=== PATIENT | male | born 1960 | race Caucasian/White ===

== ENCOUNTER 2017-07-09 12:41 | Inpatient (IN) | payer BC ==
[2017-07-09 13:03] VITALS: BMI 26.6
--- NOTE | 2017-07-09 19:11 | HP ---
CIWA Score - CIWA Score Nausea/Vomitin-Mild Nausea/No Vomiting Muscle Tremors: 4-Moderate,w/Arms Extend Anxiety: 3 Agitation: 4-Moderately Restless Paroxysmal Sweats: No Perspiration Orientation: 1-Uncertain about Date Tacttile Disturbances: 0-None Auditory Disturbances: 0-None Visual Disturbances: 0-None Headache: 0-None Present CIWA-Ar Total Score: 13 Admission ROS S - HPI Chief Complaint: withdrawal sx Allergies/Adverse Reactions: Allergies Allergy/AdvReac Type Severity Reaction Status Date / Time No Known Allergies Allergy Verified 07/09/17 17:10 History of Present Illness: 57 years old male with long history of alcohol dependence, hospitalized x 5 days (07/01-07/06), treated with cardiac arrhythemia, discharged x 2-3 days ago ( 07/06-07/09) began to drink heavily, came to [facility] for alcohol detox Exam Limitations: No Limitations - Ebola screening Have you traveled outside of the country in the last 21 days: No Have you had contact with anyone from an Ebola affected area: No Have you been sick,other than usual withdrawal symptoms: No Do you have a fever: No - Review of Systems Constitutional: Chills, Weight Stable EENT: reports: No Symptoms Reported Respiratory: reports: No Symptoms reported Cardiac: reports: No Symptoms Reported GI: reports: Nausea, Poor Fluid Intake, Indigestion, Abdominal cramping : reports: Other (volume deficit) Musculoskeletal: reports: No Symptoms Reported Integumentary: reports: Bruising (arms), Change in Color (hospitalized x 5-6 days) Neuro: reports: Tremors Endocrine: reports: No Symptoms Reported Hematology: reports: No Symptoms Reported Psychiatric: reports: Judgement Intact, Orientated x3, Depressed Other Systems: Reviewed and Negative Patient History - Patient Medical History Hx Anemia: No Hx Asthma: No Hx Chronic Obstructive Pulmonary Disease (COPD): No Hx Cancer: No Hx Cardiac Disorders: No Hx Congestive Heart Failure: No Hx Hypertension: Yes Hx Hypercholesterolemia: No Hx Pacemaker: No HX Cerebrovascular Accident: No Hx Seizures: No Hx Dementia: No Hx Diabetes: No Hx Gastrointestinal Disorders: Yes Hx Liver Disease: No Hx Genitourinary Disorders: No Hx Sexually Transmitted Disorders: No Hx Renal Disease (ESRD): No Hx Thyroid Disease: No Hx Human Immunodeficiency Virus (HIV): No Hx Hepatitis C: No Hx Depression: Yes Hx Suicide Attempt: No Hx Bipolar Disorder: No Hx Schizophrenia: No - Patient Surgical History Past Surgical History: Yes Hx Neurologic Surgery: No Hx Cataract Extraction: No Hx Cardiac Surgery: No Hx Lung Surgery: No Hx Breast Surgery: No Hx Breast Biopsy: No Hx Abdominal Surgery: No Hx Appendectomy: Yes (age 10) Hx Cholecystectomy: No Hx Genitourinary Surgery: No Hx Orthopedic Surgery: No Anesthesia Reaction: No - PPD History Previous Implant?: Yes Documented Results: Negative w/o proof Implanted On Prior R Admission?: No PPD to be Administered?: Yes - Smoking Cessation Smoking history: Smoker current status UNK Have you smoked in the past 12 months: No Hx Chewing Tobacco Use: No Initiated information on smoking cessation: No - Substance & Tx. History Hx Alcohol Use: Yes Hx Substance Use: No Substance Use Type: Alcohol Hx Substance Use Treatment: No - Substances Abused Alcohol Route: Oral Frequency: Daily Amount used: LIQUOR- 2 PINTS Age of first use: 17 Date of Last Use: 07/09/17 Family Disease History - Family Disease History Family Disease History: Diabetes: Father (), CA: Mother (), Other: Father, Mother, Brother ( hiv) Admission Physical Exam BHS - Vital Signs Vital Signs: Vital Signs - 24 hr 07/09/17 13:00 Temperature 98.3 F Pulse Rate 110 H Respiratory 18 Rate Blood Pressure 140/93 - Physical General Appearance: Yes: Nourished, Appropriately Dressed, Mild Distress, Alcohol on Breath, Tremorous, Irritable, Sweating, Anxious HEENTM: Yes: Hearing grossly Normal, Normal ENT Inspection, Normocephalic, Normal Voice Respiratory: Yes: Chest Non-Tender, Lungs Clear, Normal Breath Sounds, No Respiratory Distress, No Accessory Muscle Use Neck: Yes: Supple, Trachea in good position Breast: Yes: Breasts Symetrical Cardiology: Yes: Regular Rhythm, S1, S2, Tachycardia Abdominal: Yes: Normal Bowel Sounds, Non Tender, Soft Genitourinary: Yes: Within Normal Limits Back: Yes: Normal Inspection Musculoskeletal: Yes: full range of Motion, Gait Steady Extremities: Yes: Normal Inspection, Normal Range of Motion, Non-Tender, Tremors Neurological: Yes: Fully Oriented, Alert, Motor Strength 5/5, Normal Response, Depressed Affect Integumentary: Yes: Warm, Other (bruises both arms) Lymphatic: Yes: Within Normal Limits - Diagnostic (1) Alcohol dependence with uncomplicated withdrawal Current Visit: Yes Status: Acute (2) GERD (gastroesophageal reflux disease) Current Visit: Yes Status: Chronic Qualifiers: Esophagitis presence: without esophagitis Qualified Code(s): K21.9 - Gastro-esophageal reflux disease without esophagitis; K21.9 - Gastro- esophageal reflux disease without esophagitis; K21.9 - Gastro-esophageal reflux disease without esophagitis (3) Irregular heart rate Current Visit: Yes Status: Chronic (4) Hypertension Current Visit: Yes Status: Chronic Qualifiers: Hypertension type: essential hypertension Qualified Code(s): I10 - Essential (primary) hypertension; I10 - Essential (primary) hypertension; I10 - Essential (primary) hypertension (5) Depression (emotion) Current Visit: Yes Status: Suspected Qualifiers: Depression Type: dysthymia Qualified Code(s): F34.1 - Dysthymic disorder; F34.1 - Dysthymic disorder; F34.1 - Dysthymic disorder Cleared for Admission [facility] - Detox or Rehab [facility] Level of Care: Medically Managed Detox Regimen/Protocol: Librium [facility] Breath Alcohol Content Breath Alcohol Content: 0.230 Urine Drug Screen - Results Drug Screen Negative: No Urine Drug Screen Results: BZO-Benzodiazepines
[2017-07-09] MEDS ORDERED: MAGNESIUM HYDROX 2400MG/30ML ORAL SUSPENSION 30 ML CUP PO PRN (19:19)
[2017-07-09] MEDS ORDERED: P-EPHED 60MG/TRIPROLIDI 2.5MG TABLET PO PRN (19:19)
[2017-07-09] MEDS ORDERED: chlordiazePOXIDE HCL 25 MG CAPSULE PO PRN (19:19)
[2017-07-09] MEDS ORDERED: ACETAMINOPHEN 325 MG TABLET (FP) PO PRN (19:19)
[2017-07-09] MEDS ORDERED: MAG HYDROX/AL HYDROX/SIMETH 30 ML UNIT-DOSE CUP PO PRN (19:19)
[2017-07-09] MEDS ORDERED: guaiFENesin/D-METHORPHAN HB 10 ML UNIT-DOSE CUPS PO PRN (19:19)
[2017-07-09] MEDS ORDERED: MAGNESIUM CITRATE 300 ML BOTTLE PO PRN (19:19)
[2017-07-09] MEDS ORDERED: LOPERAMIDE HCL 2 MG CAPSULE PO PRN (19:19)
[2017-07-09] MEDS ORDERED: MENTHOL/PHENOL 1 EACH UD MM PRN (19:19)
[2017-07-09] MEDS: METOPROLOL SUCCINATE 50 MG TAB.SR.24H (FP) PO SCH (21:19)
[2017-07-09] MEDS: THIAMINE HCL 100 MG TABLET (FP) PO SCH (22:12)
[2017-07-09] MEDS: chlordiazePOXIDE HCL 25 MG CAPSULE PO SCH (22:12)
[2017-07-10] MEDS: chlordiazePOXIDE HCL 25 MG CAPSULE PO SCH ×4 (05:15→22:18)
[2017-07-10 10:14] LABS: MCH 34.8 pg (25.7-33.7); MEAN CELL VOLUME 99.6 fl (80-96); MEAN PLT VOLUME 7.9 fl (7.5-11.1); RDW 13.3 % (11.9-15.9); WHITE BLOOD COUNT 3.7 K/mm3 (4.0-10.0)
[2017-07-10] MEDS: PRENATAL VITAMINS W/ FOLIC ACID TABLET (FP) PO SCH (10:17)
[2017-07-10] MEDS: PANTOPRAZOLE 40 MG TABLET (FP) PO SCH (10:17)
[2017-07-10 10:24] LABS: PLATELET COUNT 31 K/MM3 (134-434)
--- NOTE | 2017-07-10 10:25 | EKG ---
Test Reason : Blood Pressure : / mmHG Vent. Rate : 081 BPM Atrial Rate : 081 BPM P-R Int : 150 ms QRS Dur : 086 ms QT Int : 400 ms P-R-T Axes : 032 -37 004 degrees QTc Int : 464 ms NORMAL SINUS RHYTHM LEFT AXIS DEVIATION ABNORMAL ECG WHEN COMPARED WITH ECG OF 09-JUL-2017 21:57, CRITERIA FOR SEPTAL INFARCT ARE NO LONGER PRESENT Confirmed by WALESKA KENNEY, CONSUELO ([id number]) on 07/10/2017 10:25:21 AM Referred By: Confirmed By:CONSUELO GALEANO MD
[2017-07-10 10:26] LABS: ALBUMIN 3.5 g/dl (3.4-5.0); ALK PHOS 150 U/L (45-117); ANION GAP 11 (8-16); BILIRUBIN,TOTAL 2.3 mg/dL (0.2-1.0); CALCIUM 8.4 mg/dL (8.5-10.1); CO2 29 mmol/L (21-32); CREATININE 0.8 mg/dL (0.7-1.3); GLUCOSE,RANDOM 112 mg/dL (74-106); SGOT/AST 128 U/L (15-37); SGPT/ALT 52 U/L (12-78); TOT PROT 7.9 g/dl (6.4-8.2)
--- NOTE | 2017-07-10 10:37 | CONSULT ---
[facility] Psychiatric Consult - Data Date of interview: 07/10/17 Admission source: [facility] Identifying data: First admission to [facility] for this 57 y/o male seeking detox treatment on for alcohol dependence.Patient is single,a father of one,domiciled and employed. Substance Abuse History: Discussed in this session.Patient admits to a history of heavy drinking as detailed in this [facility] report. Smoking history: Smoker current status UNK. Have you smoked in the past 12 months: No. Hx Chewing Tobacco Use: No. Initiated information on smoking cessation: No. - Substance & Tx. History. Hx Alcohol Use: Yes. Hx Substance Use: No. Substance Use Type : Alcohol. Hx Substance Use Treatment: No. - Substances Abused. Alcohol. Route: Oral. Frequency: Daily. Amount used: LIQUOR- 2 PINTS. Age of first use : 17. Date of Last Use: 07/09/17 Medical History: GERD and hypertension. Psychiatric History: No reported history of psychiatric hospitalizations.Mr Monte is known to the [facility] program ([facility]). Physical/Sexual Abuse/Trauma History: Patient denies history of abuse. Additional Comment: Urine Drug Screen Results: BZO-Benzodiazepines.Noted. Mental Status Exam - Mental Status Exam Alert and Oriented to: Time, Place, Person Cognitive Function: Good Patient Appearance: Well Groomed Mood: Hopeful, Euthymic Affect: Normal Range Patient Behavior: Fatigued, Appropriate, Cooperative Speech Pattern: Clear Voice Loudness: Normal Thought Process: Intact, Goal Oriented Thought Disorder: Not Present Hallucinations: Denies Suicidal Ideation: Denies Homicidal Ideation: Denies Insight/Judgement: Poor Sleep: Poorly, Difficulty falling asleep Appetite: Good Muscle strength/Tone: Normal Gait/Station: Normal Psychiatric Findings - Problem List ([place] 1, 2,3) (1) Alcohol dependence with uncomplicated withdrawal Current Visit: Yes Status: Acute (2) Insomnia Current Visit: Yes Status: Acute Qualifiers: Insomnia type: unspecified Qualified Code(s): G47.00 - Insomnia, unspecified - Initial Treatment Plan Initial Treatment Plan: Psychoeducation.Detoxification.Ambien 10 mg po hs prn.Patient is made aware of potential for parasomnias.Sleep hygiene discussed.Patient agrees with this careplan.Observation.
--- NOTE | 2017-07-10 11:22 | PN ---
[facility] CIWA - CIWA Score Nausea/Vomitin-No Nausea/No Vomiting Muscle Tremors: 4-Moderate,w/Arms Extend Anxiety: 4-Mod. Anxious/Guarded Agitation: 4-Moderately Restless Paroxysmal Sweats: 1-Minimal Palms Moist Orientation: 0-Oriented Tacttile Disturbances: 3-Moderate Itch/Numb/Burn Auditory Disturbances: 0-None Visual Disturbances: 0-None Headache: 0-None Present CIWA-Ar Total Score: 16 S Progress Note (SOAP) Subjective: ANXIETY,SWEATS,TREMORS,IRRITABILITY. PT C/O FAOO LAST Saturday07/08/17. REPORTS LARGE ECHYMOTIC AREA ON RIGHT SIDE OF ABDOMEN/CHEST AND RIGHT SHOULDER. Objective: 07/10/17 11:22 Vital Signs Temperature 99.7 F H 07/10/17 09:21 Pulse Rate 108 H 07/10/17 09:21 Respiratory Rate 20 07/10/17 09:21 Blood Pressure 157/96 07/10/17 09:21 O2 Sat by Pulse Oximetry (%) Laboratory Last Values WBC 3.7 K/mm3 (4.0-10.0) L 07/10/17 07:00 RBC 3.39 M/mm3 (4.00-5.60) L 07/10/17 07:00 Hgb 11.8 GM/dL (11.7-16.9) 07/10/17 07:00 Hct 33.8 % (35.4-49) L 07/10/17 07:00 MCV 99.6 fl (80-96) H 07/10/17 07:00 MCH 34.8 pg (25.7-33.7) H 07/10/17 07:00 MCHC 35.0 g/dl (32.0-35.9) 07/10/17 07:00 RDW 13.3 % (11.9-15.9) 07/10/17 07:00 Plt Count 31 K/MM3 (134-434) L* 07/10/17 07:00 MPV 7.9 fl (7.5-11.1) 07/10/17 07:00 Sodium 136 mmol/L (136-145) 07/10/17 07:00 Potassium 3.4 mmol/L (3.5-5.1) L 07/10/17 07:00 Chloride 96 mmol/L (98-107) L 07/10/17 07:00 Carbon Dioxide 29 mmol/L (21-32) 07/10/17 07:00 Anion Gap 11 (8-16) 07/10/17 07:00 BUN 4 mg/dL (7-18) L 07/10/17 07:00 Creatinine 0.8 mg/dL (0.7-1.3) 07/10/17 07:00 Creat Clearance w eGFR > 60 (>60) 07/10/17 07:00 Random Glucose 112 mg/dL (74-106) H 07/10/17 07:00 Calcium 8.4 mg/dL (8.5-10.1) L 07/10/17 07:00 Total Bilirubin 2.3 mg/dL (0.2-1.0) H 07/10/17 07:00 AST 128 U/L (15-37) H 07/10/17 07:00 ALT 52 U/L (12-78) 07/10/17 07:00 Alkaline Phosphatase 150 U/L (45-117) H 07/10/17 07:00 Total Protein 7.9 g/dl (6.4-8.2) 07/10/17 07:00 Albumin 3.5 g/dl (3.4-5.0) 07/10/17 07:00 K+ = 3.4 Assessment: 07/10/17 11:22 WITHDRAWAL SX BORDERLINE HYPOKALEMIA Plan: CONTINUE DETOX KDUR 20 MEQ PO BID REPEAT CMP AND CBC; INR ON 07/11/17
[2017-07-10] MEDS ORDERED: POTASSIUM CHLORIDE TABS 20 MEQ TABLET.ER (FP) PO ONE (12:00)
[2017-07-10] MEDS: METOPROLOL SUCCINATE 50 MG TAB.SR.24H (FP) PO SCH (12:10)
[2017-07-10 13:44] LABS: HIV 1 & 2 AB NEGATIVE; HIV 1 AGp24 NEGATIVE
[2017-07-10 21:42] LABS: URINE APPEARANCE SLCLOUDY; URINE BILIRUBIN NEGATIVE (NEGATIVE); URINE BLOOD NEGATIVE (NEGATIVE); URINE COLOR AMBER; URINE GLUCOSE (UA) NEGATIVE (NEGATIVE); URINE KETONE NEGATIVE (NEGATIVE); URINE NITRITE NEGATIVE (NEGATIVE); URINE UROBILINOGEN 4.0 E.U/dl mg/dL (0.2-1.0)
[2017-07-10 21:55] LABS: URINE PROTEIN 1+ (NEGATIVE)
[2017-07-10 22:01] LABS: URINE MUCUS RARE; URINE RBC <1 /hpf (0-3); URINE WBC 0-2 /hpf (3-5)
[2017-07-10] MEDS: POTASSIUM CHLORIDE TABS 20 MEQ TABLET.ER (FP) PO SCH (22:18)
[2017-07-10] MEDS: THIAMINE HCL 100 MG TABLET (FP) PO SCH (22:18)
[2017-07-10] MEDS: ZOLPIDEM TARTRATE 10 MG TABLET (PARK CARE ONLY) PO PRN (22:19)
[2017-07-10 22:39] LABS: URINE LEUK ESTERASE Negative (NEGATIVE)
[2017-07-11] MEDS: chlordiazePOXIDE HCL 25 MG CAPSULE PO SCH ×3 (05:02→17:22)
[2017-07-11 10:01] LABS: EOSINOPHIL 1.2 % (0-4.5); MCH 34.7 pg (25.7-33.7); MCHC 34.3 g/dl (32.0-35.9); MEAN CELL VOLUME 101.3 fl (80-96); MEAN PLT VOLUME 9.2 fl (7.5-11.1); NEUTROPHILS 52.2 % (42.8-82.8); PLATELET COUNT 44 K/MM3 (134-434); WHITE BLOOD COUNT 5.8 K/mm3 (4.0-10.0)
[2017-07-11 10:05] LABS: INR 1.35 (0.82-1.09); PROTHROMBIN TIME (PATIENT) 15.2 SEC (9.98-11.88)
[2017-07-11] MEDS: PRENATAL VITAMINS W/ FOLIC ACID TABLET (FP) PO SCH (11:13)
[2017-07-11] MEDS: PANTOPRAZOLE 40 MG TABLET (FP) PO SCH (11:14)
[2017-07-11] MEDS: POTASSIUM CHLORIDE TABS 20 MEQ TABLET.ER (FP) PO SCH (11:14)
[2017-07-11] MEDS: METOPROLOL SUCCINATE 50 MG TAB.SR.24H (FP) PO SCH (11:15)
[2017-07-11 11:39] LABS: ALBUMIN 3.9 g/dl (3.4-5.0); ALK PHOS 165 U/L (45-117); ANION GAP 9 (8-16); BILIRUBIN,TOTAL 2.8 mg/dL (0.2-1.0); CALCIUM 9.5 mg/dL (8.5-10.1); CO2 29 mmol/L (21-32); GLUCOSE,RANDOM 93 mg/dL (74-106); SGOT/AST 108 U/L (15-37); SGPT/ALT 50 U/L (12-78); TOT PROT 9.1 g/dl (6.4-8.2)
--- NOTE | 2017-07-11 12:42 | PN ---
[facility] CIWA - CIWA Score Nausea/Vomitin-No Nausea/No Vomiting Muscle Tremors: 4-Moderate,w/Arms Extend Anxiety: 4-Mod. Anxious/Guarded Agitation: 4-Moderately Restless Paroxysmal Sweats: 1-Minimal Palms Moist Orientation: 0-Oriented Tacttile Disturbances: 3-Moderate Itch/Numb/Burn Auditory Disturbances: 0-None Visual Disturbances: 0-None Headache: 0-None Present CIWA-Ar Total Score: 16 S Progress Note (SOAP) Subjective: ANXIETY,TREMORS,SWEATS. ALERTMO X 3. OOB WITH STEADY GAIT. Objective: 07/11/17 12:37 Vital Signs Temperature 97.9 F 07/11/17 10:51 Pulse Rate 130 H 07/11/17 10:51 Respiratory Rate 20 07/11/17 10:51 Blood Pressure 135/80 07/11/17 10:51 O2 Sat by Pulse Oximetry (%) Laboratory Tests 07/10/17 07/10/17 07/10/17 07:00 07:00 07:00 WBC 3.7 L RBC 3.39 L Hgb 11.8 Hct 33.8 L MCV 99.6 H MCH 34.8 H MCHC 35.0 RDW 13.3 Plt Count 31 L* MPV 7.9 Neutrophils % Lymphocytes % Monocytes % Eosinophils % Basophils % PT with INR INR Sodium 136 Potassium 3.4 L Chloride 96 L Carbon Dioxide 29 Anion Gap 11 BUN 4 L Creatinine 0.8 Creat Clearance w eGFR > 60 Random Glucose 112 H Calcium 8.4 L Total Bilirubin 2.3 H AST 128 H ALT 52 Alkaline Phosphatase 150 H Total Protein 7.9 Albumin 3.5 Urine Color Urine Appearance Urine pH Ur Specific [place] Urine Protein Urine Glucose (UA) Urine Ketones Urine Blood Urine Nitrite Urine Bilirubin Urine Urobilinogen Ur Leukocyte Esterase Urine RBC Urine WBC Ur Epithelial Cells Urine Mucus RPR Titer HIV 1&2 Antibody Screen Negative HIV P24 Antigen Negative 07/10/17 07/10/17 07/11/17 07:00 21:00 07:00 WBC 5.8 D RBC 4.06 Hgb 14.1 D Hct 41.1 D MCV 101.3 H MCH 34.7 H MCHC 34.3 RDW 13.0 Plt Count 44 L D MPV 9.2 D Neutrophils % 52.2 Lymphocytes % 30.7 Monocytes % 14.9 H Eosinophils % 1.2 Basophils % 1.0 PT with INR INR Sodium Potassium Chloride Carbon Dioxide Anion Gap BUN Creatinine Creat Clearance w eGFR Random Glucose Calcium Total Bilirubin AST ALT Alkaline Phosphatase Total Protein Albumin Urine Color Ariana Urine Appearance Slcloudy Urine pH 8.0 Ur Specific [place] 1.013 Urine Protein 1+ H Urine Glucose (UA) Negative Urine Ketones Negative Urine Blood Negative Urine Nitrite Negative Urine Bilirubin Negative Urine Urobilinogen 4.0 e.u/dl Ur Leukocyte Esterase Negative Urine RBC <1 Urine WBC 0-2 Ur Epithelial Cells Rare Urine Mucus Rare RPR Titer Nonreactive HIV 1&2 Antibody Screen HIV P24 Antigen 07/11/17 07/11/17 07:00 07:00 WBC RBC Hgb Hct MCV MCH MCHC RDW Plt Count MPV Neutrophils % Lymphocytes % Monocytes % Eosinophils % Basophils % PT with INR 15.20 H INR 1.35 H Sodium 139 Potassium 4.0 Chloride 101 Carbon Dioxide 29 Anion Gap 9 BUN 8 D Creatinine 1.0 D Creat Clearance w eGFR > 60 Random Glucose 93 Calcium 9.5 Total Bilirubin 2.8 H D AST 108 H ALT 50 Alkaline Phosphatase 165 H Total Protein 9.1 H Albumin 3.9 Urine Color Urine Appearance Urine pH Ur Specific [place] Urine Protein Urine Glucose (UA) Urine Ketones Urine Blood Urine Nitrite Urine Bilirubin Urine Urobilinogen Ur Leukocyte Esterase Urine RBC Urine WBC Ur Epithelial Cells Urine Mucus RPR Titer HIV 1&2 Antibody Screen HIV P24 Antigen Assessment: 07/11/17 12:38 WITHDRAWAL SX Plan: CONTINUE DETOX INCREASE PO FLUIDS.
[2017-07-11] MEDS: ZOLPIDEM TARTRATE 10 MG TABLET (PARK CARE ONLY) PO PRN (22:04)
[2017-07-11] MEDS: chlordiazePOXIDE 5 MG CAPSULE PO SCH (22:04)
[2017-07-11] MEDS: THIAMINE HCL 100 MG TABLET (FP) PO SCH (22:04)
[2017-07-12] MEDS: chlordiazePOXIDE 5 MG CAPSULE PO SCH ×3 (05:02→17:13)
[2017-07-12] MEDS ORDERED: POTASSIUM CHLORIDE TABS 20 MEQ TABLET.ER (FP) PO SCH (10:00)
[2017-07-12] MEDS: PANTOPRAZOLE 40 MG TABLET (FP) PO SCH (10:03)
[2017-07-12] MEDS: PRENATAL VITAMINS W/ FOLIC ACID TABLET (FP) PO SCH (10:03)
[2017-07-12] MEDS: METOPROLOL SUCCINATE 50 MG TAB.SR.24H (FP) PO SCH (10:04)
--- NOTE | 2017-07-12 10:42 | PN ---
S Progress Note (SOAP) Subjective: ALERT O X 3. OOB WITH STAEDY GAIT. TREMORS RESOLVING. Objective: 07/12/17 10:39 Vital Signs Temperature 97.8 F 07/12/17 09:18 Pulse Rate 128 H 07/12/17 09:18 Respiratory Rate 18 07/12/17 09:18 Blood Pressure 132/89 07/12/17 09:18 O2 Sat by Pulse Oximetry (%) Laboratory Last Values WBC 5.8 K/mm3 (4.0-10.0) D 07/11/17 07:00 RBC 4.06 M/mm3 (4.00-5.60) 07/11/17 07:00 Hgb 14.1 GM/dL (11.7-16.9) D 07/11/17 07:00 Hct 41.1 % (35.4-49) D 07/11/17 07:00 MCV 101.3 fl (80-96) H 07/11/17 07:00 MCH 34.7 pg (25.7-33.7) H 07/11/17 07:00 MCHC 34.3 g/dl (32.0-35.9) 07/11/17 07:00 RDW 13.0 % (11.9-15.9) 07/11/17 07:00 Plt Count 44 K/MM3 (134-434) L D 07/11/17 07:00 MPV 9.2 fl (7.5-11.1) D 07/11/17 07:00 Neutrophils % 52.2 % (42.8-82.8) 07/11/17 07:00 Lymphocytes % 30.7 % (8-40) 07/11/17 07:00 Monocytes % 14.9 % (3.8-10.2) H 07/11/17 07:00 Eosinophils % 1.2 % (0-4.5) 07/11/17 07:00 Basophils % 1.0 % (0-2.0) 07/11/17 07:00 PT with INR 15.20 SEC (9.98-11.88) H 07/11/17 07:00 INR 1.35 (0.82-1.09) H 07/11/17 07:00 Sodium 139 mmol/L (136-145) 07/11/17 07:00 Potassium 4.0 mmol/L (3.5-5.1) 07/11/17 07:00 Chloride 101 mmol/L (98-107) 07/11/17 07:00 Carbon Dioxide 29 mmol/L (21-32) 07/11/17 07:00 Anion Gap 9 (8-16) 07/11/17 07:00 BUN 8 mg/dL (7-18) D 07/11/17 07:00 Creatinine 1.0 mg/dL (0.7-1.3) D 07/11/17 07:00 Creat Clearance w eGFR > 60 (>60) 07/11/17 07:00 Random Glucose 93 mg/dL (74-106) 07/11/17 07:00 Calcium 9.5 mg/dL (8.5-10.1) 07/11/17 07:00 Total Bilirubin 2.8 mg/dL (0.2-1.0) H D 07/11/17 07:00 AST 108 U/L (15-37) H 07/11/17 07:00 ALT 50 U/L (12-78) 07/11/17 07:00 Alkaline Phosphatase 165 U/L (45-117) H 07/11/17 07:00 Total Protein 9.1 g/dl (6.4-8.2) H 07/11/17 07:00 Albumin 3.9 g/dl (3.4-5.0) 07/11/17 07:00 Urine Color Ariana 07/10/17 21:00 Urine Appearance Slcloudy 07/10/17 21:00 Urine pH 8.0 (5.0-8.0) 07/10/17 21:00 Ur Specific [place] 1.013 (1.001-1.035) 07/10/17 21:00 Urine Protein 1+ (NEGATIVE) H 07/10/17 21:00 Urine Glucose (UA) Negative (NEGATIVE) 07/10/17 21:00 Urine Ketones Negative (NEGATIVE) 07/10/17 21:00 Urine Blood Negative (NEGATIVE) 07/10/17 21:00 Urine Nitrite Negative (NEGATIVE) 07/10/17 21:00 Urine Bilirubin Negative (NEGATIVE) 07/10/17 21:00 Urine Urobilinogen 4.0 e.u/dl mg/dL (0.2-1.0) 07/10/17 21:00 Ur Leukocyte Esterase Negative (NEGATIVE) 07/10/17 21:00 Urine RBC <1 /hpf (0-3) 07/10/17 21:00 Urine WBC 0-2 /hpf (3-5) 07/10/17 21:00 Ur Epithelial Cells Rare /hpf (FEW) 07/10/17 21:00 Urine Mucus Rare 07/10/17 21:00 RPR Titer Nonreactive (NONREACTIVE) 07/10/17 07:00 HIV 1&2 Antibody Screen Negative 07/10/17 07:00 HIV P24 Antigen Negative 07/10/17 07:00 Assessment: 07/12/17 10:40 WITHDRAWAL SX Plan: CONTINUE DETOX
--- NOTE | 2017-07-12 12:03 | EKG ---
Test Reason : Blood Pressure : / mmHG Vent. Rate : 098 BPM Atrial Rate : 098 BPM P-R Int : 146 ms QRS Dur : 084 ms QT Int : 350 ms P-R-T Axes : 050 -45 033 degrees QTc Int : 446 ms NORMAL SINUS RHYTHM LEFT ANTERIOR FASCICULAR BLOCK SEPTAL INFARCT , AGE UNDETERMINED ABNORMAL ECG NO PREVIOUS ECGS AVAILABLE Confirmed by BABATUNDE LANDEROS MD ([id number]) on 07/12/2017 12:03:39 PM Referred By: Confirmed By:BABATUNDE LANDEROS MD
[2017-07-12] MEDS ORDERED: chlordiazePOXIDE HCL 25 MG CAPSULE PO ONE (14:00)
[2017-07-12] MEDS: THIAMINE HCL 100 MG TABLET (FP) PO SCH (22:07)
[2017-07-12] MEDS: chlordiazePOXIDE HCL 10 MG CAPSULE PO SCH (22:07)
[2017-07-12] MEDS: ZOLPIDEM TARTRATE 10 MG TABLET (PARK CARE ONLY) PO PRN (22:09)
[2017-07-13] MEDS: chlordiazePOXIDE HCL 10 MG CAPSULE PO SCH (05:10)
[2017-07-13 10:44] VITALS: BP 129/88; PULSE 110; TEMP 98.5
--- NOTE | 2017-07-13 17:53 | DS ---
[facility] Detox Discharge Summary Admission Date: 07/09/17 Discharge Date: 07/13/17 - History Present History: Alcohol Dependence Additional Comments: PATIENT GOING TO [facility] ([facility]) FOR AFTERCARE. PATIENT WAS DISCHARGED FROM DETOX UNIT IN STABLE MEDICAL CONDITION. Pertinent Past History: HTN, Irregular [place] Rate, Insomnia, Depression. - Physical Exam Results Vital Signs: Vital Signs Temperature 98.5 F 07/13/17 10:44 Pulse Rate 110 H 07/13/17 10:44 Respiratory Rate 18 07/13/17 10:44 Blood Pressure 129/88 07/13/17 10:44 O2 Sat by Pulse Oximetry (%) Pertinent Admission Physical Exam Findings: WITHDRAWAL SYMPTOMS. Laboratory Tests 07/10/17 07/10/17 07/10/17 07:00 07:00 07:00 WBC 3.7 L RBC 3.39 L Hgb 11.8 Hct 33.8 L MCV 99.6 H MCH 34.8 H MCHC 35.0 RDW 13.3 Plt Count 31 L* MPV 7.9 Neutrophils % Lymphocytes % Monocytes % Eosinophils % Basophils % PT with INR INR Sodium 136 Potassium 3.4 L Chloride 96 L Carbon Dioxide 29 Anion Gap 11 BUN 4 L Creatinine 0.8 Creat Clearance w eGFR > 60 Random Glucose 112 H Calcium 8.4 L Total Bilirubin 2.3 H AST 128 H ALT 52 Alkaline Phosphatase 150 H Total Protein 7.9 Albumin 3.5 Urine Color Urine Appearance Urine pH Ur Specific [place] Urine Protein Urine Glucose (UA) Urine Ketones Urine Blood Urine Nitrite Urine Bilirubin Urine Urobilinogen Ur Leukocyte Esterase Urine RBC Urine WBC Ur Epithelial Cells Urine Mucus RPR Titer HIV 1&2 Antibody Screen Negative HIV P24 Antigen Negative 07/10/17 07/10/17 07/11/17 07:00 21:00 07:00 WBC 5.8 D RBC 4.06 Hgb 14.1 D Hct 41.1 D MCV 101.3 H MCH 34.7 H MCHC 34.3 RDW 13.0 Plt Count 44 L D MPV 9.2 D Neutrophils % 52.2 Lymphocytes % 30.7 Monocytes % 14.9 H Eosinophils % 1.2 Basophils % 1.0 PT with INR INR Sodium Potassium Chloride Carbon Dioxide Anion Gap BUN Creatinine Creat Clearance w eGFR Random Glucose Calcium Total Bilirubin AST ALT Alkaline Phosphatase Total Protein Albumin Urine Color [place] Urine Appearance Slcloudy Urine pH 8.0 Ur Specific [place] 1.013 Urine Protein 1+ H Urine Glucose (UA) Negative Urine Ketones Negative Urine Blood Negative Urine Nitrite Negative Urine Bilirubin Negative Urine Urobilinogen 4.0 e.u/dl Ur Leukocyte Esterase Negative Urine RBC <1 Urine WBC 0-2 Ur Epithelial Cells Rare Urine Mucus Rare RPR Titer Nonreactive HIV 1&2 Antibody Screen HIV P24 Antigen 07/11/17 07/11/17 07:00 07:00 WBC RBC Hgb Hct MCV MCH MCHC RDW Plt Count MPV Neutrophils % Lymphocytes % Monocytes % Eosinophils % Basophils % PT with INR 15.20 H INR 1.35 H Sodium 139 Potassium 4.0 Chloride 101 Carbon Dioxide 29 Anion Gap 9 BUN 8 D Creatinine 1.0 D Creat Clearance w eGFR > 60 Random Glucose 93 Calcium 9.5 Total Bilirubin 2.8 H D AST 108 H ALT 50 Alkaline Phosphatase 165 H Total Protein 9.1 H Albumin 3.9 Urine Color Urine Appearance Urine pH Ur Specific [place] Urine Protein Urine Glucose (UA) Urine Ketones Urine Blood Urine Nitrite Urine Bilirubin Urine Urobilinogen Ur Leukocyte Esterase Urine RBC Urine WBC Ur Epithelial Cells Urine Mucus RPR Titer HIV 1&2 Antibody Screen HIV P24 Antigen LABS NOTED. - Treatment Hospital Course: Detox Protocol Followed, Detoxed Safely, Responded well, Discharged Condition Good Patient has Accepted a Rehab Referral to: NO. PT GOING TO [facility] [place] - Medication Discharge Medications: Ambulatory Orders Metoprolol Succinate [Toprol Xl -] 50 mg PO DAILY 07/09/17 Pantoprazole Sodium [Protonix -] 40 mg PO DAILY 07/09/17 - Diagnosis (1) Alcohol dependence with uncomplicated withdrawal Status: Acute (2) Insomnia Status: Acute Qualifiers: Insomnia type: unspecified Qualified Code(s): G47.00 - Insomnia, unspecified (3) GERD (gastroesophageal reflux disease) Status: Chronic Qualifiers: Esophagitis presence: without esophagitis Qualified Code(s): K21.9 - Gastro -esophageal reflux disease without esophagitis (4) Hypertension Status: Chronic Qualifiers: Hypertension type: essential hypertension Qualified Code(s): I10 - Essential (primary) hypertension (5) Irregular heart rate Status: Chronic (6) Depression (emotion) Status: Suspected Qualifiers: Depression Type: dysthymia Qualified Code(s): F34.1 - Dysthymic disorder - AMA Did Patient Leave Against Medical Advice: No
--- NOTE | 2017-07-15 17:34 | EKG ---
Test Reason : Blood Pressure : / mmHG Vent. Rate : 093 BPM Atrial Rate : 093 BPM P-R Int : 158 ms QRS Dur : 080 ms QT Int : 348 ms P-R-T Axes : 038 -37 019 degrees QTc Int : 432 ms NORMAL SINUS RHYTHM LEFT AXIS DEVIATION LOW VOLTAGE QRS CANNOT RULE OUT ANTERIOR INFARCT , AGE UNDETERMINED ABNORMAL ECG WHEN COMPARED WITH ECG OF 10-JUL-2017 08:26, NO SIGNIFICANT CHANGE WAS FOUND Confirmed by MANDY KENNEY, LAUREN ([id number]) on 07/15/2017 5:34:43 PM Referred By: Confirmed By:LAUREN GALVAN MD
== END 2017-07-13 09:12 | disposition home or self-care (01) | DRG 897 ==
LOC: YASAS 12:41 → Y3N 18:37
PROVIDERS: ADMIT Internal Medicine; ATTEND Internal Medicine
PROC: HZ2ZZZZ Detoxification Services for Substance Abuse Treatment (ICD-10-PCS; principal; 2017-07-09)
DX: F10.230 Alcohol dependence with withdrawal, uncomplicated (principal); F34.1 Dysthymic disorder; G47.00 Insomnia, unspecified; I10 Essential (primary) hypertension; K21.9 Gastro-esophageal reflux disease without esophagitis; I49.9 Cardiac arrhythmia, unspecified
CPT/HCPCS: 36415; 71020-TC; 73030-TC-RT; 80053; 81003; 81015; 85025; 85027; 85610; 86593; 87389; 93005; 93010

== ENCOUNTER 2017-07-23 12:02 | Inpatient (IN) | payer BC ==
[2017-07-23 13:11] VITALS: BMI 28.0
--- NOTE | 2017-07-23 15:26 | HP ---
CIWA Score - CIWA Score Nausea/Vomitin-No Nausea/No Vomiting Muscle Tremors: 5 Anxiety: 4-Mod. Anxious/Guarded Agitation: 0-Normal Activity Paroxysmal Sweats: 3 Orientation: 4Disoriented Place/Person Tacttile Disturbances: 2-Mild Itch/Numbness/Burn Auditory Disturbances: 0-None Visual Disturbances: 0-None Headache: 0-None Present CIWA-Ar Total Score: 18 Admission ROS BHS - HPI Chief Complaint: "I need help." Patient is here to Detox from Alcohol. Allergies/Adverse Reactions: Allergies Allergy/AdvReac Type Severity Reaction Status Date / Time No Known Allergies Allergy Verified 07/09/17 17:10 History of Present Illness: Pt. is a 57 YO male here to Detox from Alcohol. Pt. has 1 previous Detox at [facility] (07/2017). Longest recent period of sobriety: approx. 1 year (2014 - 2015) . Pt. was evaluated at [facility] ([place], [place]) approx. 1 week ago for cardiac issue. Exam Limitations: Intoxication - Ebola screening Have you traveled outside of the country in the last 21 days: No (N) Have you had contact with anyone from an Ebola affected area: No Have you been sick,other than usual withdrawal symptoms: No Do you have a fever: No - Review of Systems Constitutional: Diaphoresis, Malaise, Night Sweats, Changes in sleep EENT: reports: Hearing Loss Respiratory: reports: No Symptoms reported Cardiac: reports: No Symptoms Reported GI: reports: No Symptoms Reported : reports: Other (Occasional difficulty initiating void stream.) Musculoskeletal: reports: No Symptoms Reported Integumentary: reports: Bruising (Occur primarily accidentally when intoxicated. ) Neuro: reports: Tremors Endocrine: reports: No Symptoms Reported Hematology: reports: No Symptoms Reported Psychiatric: reports: Judgement Intact, Mood/Affect Appropiate, Depressed (No Previous Treatment.), Disorientated (To Current Location.), other (Intoxicated.) Other Systems: Reviewed and Negative Patient History - Patient Medical History Hx Anemia: No Hx Asthma: No Hx Chronic Obstructive Pulmonary Disease (COPD): No Hx Cancer: No Hx Cardiac Disorders: No Hx Congestive Heart Failure: No Hx Hypertension: Yes (On meds.; Non-Compliant.) Hx Hypercholesterolemia: No Hx Pacemaker: No HX Cerebrovascular Accident: No Hx Seizures: No Hx Dementia: No Hx Diabetes: No Hx Gastrointestinal Disorders: Yes Hx Liver Disease: No Hx Genitourinary Disorders: No Hx Sexually Transmitted Disorders: No Hx Renal Disease (ESRD): No Hx Thyroid Disease: No Hx Human Immunodeficiency Virus (HIV): No (Last Tested: approx. 6 months ago: NEGATIVE.) Hx Hepatitis C: No (Last Tested: approx. 6 months ago: NEGATIVE.) Hx Depression: Yes (No preivous Treatment.) Hx Suicide Attempt: No (PATIENT DENIES CURRENT SI / HI.) Hx Bipolar Disorder: No Hx Schizophrenia: No Other Medical History: Henorrhoids. - Patient Surgical History Past Surgical History: Yes Hx Neurologic Surgery: No Hx Cataract Extraction: No Hx Cardiac Surgery: No Hx Lung Surgery: No Hx Breast Surgery: No Hx Breast Biopsy: No Hx Abdominal Surgery: Yes (Double Hernia repair, 2011.) Hx Appendectomy: Yes (age 10) Hx Cholecystectomy: No Hx Genitourinary Surgery: No Hx Section: No Hx Orthopedic Surgery: No Other Surgical History: DENIES. Anesthesia Reaction: No - PPD History Previous Implant?: Yes Documented Results: Negative w/proof Implanted On Prior [facility] Admission?: Yes Date: 07/11/17 PPD to be Administered?: No - Reproductive History Patient is a Female of Child Bearing Age (11 -55 yrs old): No (PATIENT IS MALE.) - Smoking Cessation Smoking history: Never smoked Have you smoked in the past 12 months: No Cigars Per Day: 1 Hx Chewing Tobacco Use: No Initiated information on smoking cessation: Yes 'Breaking Loose' booklet given: 07/23/17 (GIVEN ON UNIT.) - Substance & Tx. History Hx Alcohol Use: Yes Substance Use Type: Alcohol Hx Substance Use Treatment: Yes (1 Previous Detox admission at [facility] (07/2017).) - Substances Abused Alcohol Route: Oral Frequency: Daily Amount used: 2 Pints Vodka / Whiskey Age of first use: 17 Date of Last Use: 07/23/17 Family Disease History - Family Disease History Family Disease History: Diabetes: Father (), CA: Mother (), Other: Father, Mother, Brother ( hiv), Sister (Corneal Disorder.) Admission Physical Exam S - Vital Signs Vital Signs: Vital Signs - 24 hr 07/23/17 13:10 Temperature 97.9 F Pulse Rate 90 Respiratory 18 Rate Blood Pressure 137/87 - Physical General Appearance: Yes: Nourished, Appropriately Dressed, Moderate Distress, Intoxicated, Tremorous, Anxious HEENTM: Yes: Hearing grossly Normal, Normocephalic, Normal Voice, UNRULY, Pharynx Normal Respiratory: Yes: Chest Non-Tender, Lungs Clear, No Respiratory Distress, No Accessory Muscle Use Neck: Yes: No masses,lesions,Nodules, Supple, Trachea in good position Breast: Yes: Breast Exam Deferred Cardiology: Yes: Regular Rhythm, Regular Rate, S1, S2 Abdominal: Yes: Normal Bowel Sounds, Non Tender, Soft, Protuberent Genitourinary: Yes: Hesitency Back: Yes: Within Normal Limits Musculoskeletal: Yes: full range of Motion, Gait Steady Extremities: Yes: Normal Range of Motion, Non-Tender, Tremors Neurological: Yes: Alert, Normal Mood/Affect, Normal Response, Disoriented (To Current Location.) Integumentary: Yes: Normal Color, Dry, Warm Lymphatic: Yes: Within Normal Limits - Diagnostic (1) Alcohol dependence with intoxication Current Visit: Yes Status: Acute Qualifiers: Complication of substance-induced condition: uncomplicated Qualified Code(s ): F10.220 - Alcohol dependence with intoxication, uncomplicated (2) Alcohol dependence with uncomplicated withdrawal Current Visit: Yes Status: Acute (3) Hypertension Current Visit: Yes Status: Chronic Qualifiers: Hypertension type: essential hypertension Qualified Code(s): I10 - Essential (primary) hypertension (4) Depression (emotion) Current Visit: Yes Status: Suspected Qualifiers: Depression Type: unspecified Qualified Code(s): F32.9 - Major depressive disorder, single episode, unspecified Cleared for Admission [facility] - Detox or Rehab [facility] Level of Care: Medically Managed Detox Regimen/Protocol: Librium [facility] Breath Alcohol Content Breath Alcohol Content: 0.260 Urine Drug Screen - Results Drug Screen Negative: No Urine Drug Screen Results: BZO-Benzodiazepines
[2017-07-23] MEDS ORDERED: P-EPHED 60MG/TRIPROLIDI 2.5MG TABLET PO PRN (16:21)
[2017-07-23] MEDS ORDERED: IBUPROFEN 400 MG TABLET (FP) PO PRN (16:21)
[2017-07-23] MEDS ORDERED: MAG HYDROX/AL HYDROX/SIMETH 30 ML UNIT-DOSE CUP PO PRN (16:21)
[2017-07-23] MEDS ORDERED: MENTHOL/PHENOL 1 EACH UD MM PRN (16:21)
[2017-07-23] MEDS ORDERED: ACETAMINOPHEN 325 MG TABLET (FP) PO PRN (16:21)
[2017-07-23] MEDS ORDERED: guaiFENesin/D-METHORPHAN HB 10 ML UNIT-DOSE CUPS PO PRN (16:21)
[2017-07-23] MEDS ORDERED: LOPERAMIDE HCL 2 MG CAPSULE PO PRN (16:21)
[2017-07-23] MEDS ORDERED: MAGNESIUM CITRATE 300 ML BOTTLE PO PRN (16:21)
[2017-07-23] MEDS ORDERED: MAGNESIUM HYDROX 2400MG/30ML ORAL SUSPENSION 30 ML CUP PO PRN (16:21)
[2017-07-23] MEDS ORDERED: hydrOXYzine PAMOATE 50 MG CAPSULE (FP) PO PRN (16:21)
[2017-07-23] MEDS ORDERED: chlordiazePOXIDE HCL 25 MG CAPSULE PO PRN (16:21)
[2017-07-23] MEDS ORDERED: chlordiazePOXIDE HCL 25 MG CAPSULE PO ONE (17:00)
[2017-07-23] MEDS: METOPROLOL SUCCINATE 50 MG TAB.SR.24H (FP) PO SCH (18:58)
[2017-07-23] MEDS: chlordiazePOXIDE HCL 25 MG CAPSULE PO SCH ×2 (18:58→22:12)
[2017-07-23] MEDS: THIAMINE HCL 100 MG TABLET (FP) PO SCH (22:11)
[2017-07-23 22:48] LABS: URINE APPEARANCE CLEAR; URINE BILIRUBIN NEGATIVE (NEGATIVE); URINE BLOOD NEGATIVE (NEGATIVE); URINE COLOR LTYELLOW; URINE GLUCOSE (UA) NEGATIVE (NEGATIVE); URINE KETONE NEGATIVE (NEGATIVE); URINE NITRITE NEGATIVE (NEGATIVE); URINE PROTEIN NEGATIVE (NEGATIVE); URINE UROBILINOGEN NEGATIVE mg/dL (0.2-1.0)
[2017-07-24] MEDS: chlordiazePOXIDE HCL 25 MG CAPSULE PO SCH ×4 (05:28→22:51)
[2017-07-24 09:56] LABS: MCH 34.9 pg (25.7-33.7); MCHC 34.1 g/dl (32.0-35.9); MEAN CELL VOLUME 102.2 fl (80-96); MEAN PLT VOLUME 8.1 fl (7.5-11.1); PLATELET COUNT 196 K/MM3 (134-434); RDW 13.1 % (11.9-15.9); WHITE BLOOD COUNT 7.2 K/mm3 (4.0-10.0)
--- NOTE | 2017-07-24 10:16 | EKG ---
Test Reason : Blood Pressure : / mmHG Vent. Rate : 099 BPM Atrial Rate : 099 BPM P-R Int : 146 ms QRS Dur : 092 ms QT Int : 352 ms P-R-T Axes : 044 -32 019 degrees QTc Int : 451 ms NORMAL SINUS RHYTHM LEFT AXIS DEVIATION ABNORMAL ECG WHEN COMPARED WITH ECG OF 12-JUL-2017 13:46, NO SIGNIFICANT CHANGE WAS FOUND Confirmed by CONSUELO GALEANO MD ([id number]) on 07/24/2017 10:16:20 AM Referred By: Confirmed By:CONSUELO GALEANO MD
[2017-07-24 10:28] LABS: ALBUMIN 3.1 g/dl (3.4-5.0); ALK PHOS 124 U/L (45-117); ANION GAP 10 (8-16); BILIRUBIN,TOTAL 0.7 mg/dL (0.2-1.0); CALCIUM 8.1 mg/dL (8.5-10.1); CO2 21 mmol/L (21-32); CREATININE 0.7 mg/dL (0.7-1.3); GLUCOSE,RANDOM 127 mg/dL (74-106); SGOT/AST 69 U/L (15-37); SGPT/ALT 48 U/L (12-78); TOT PROT 7.5 g/dl (6.4-8.2)
--- NOTE | 2017-07-24 10:42 | PN ---
S CIWA - CIWA Score Nausea/Vomitin Muscle Tremors: 3 Anxiety: 3 Agitation: 3 Paroxysmal Sweats: 1-Minimal Palms Moist Orientation: 0-Oriented Tacttile Disturbances: 1-Very Mild Itch/Numbness Auditory Disturbances: 1-Very Mild Visual Disturbances: 0-None Headache: 2-Mild CIWA-Ar Total Score: 17 BHS Progress Note (SOAP) Subjective: alert,irritable,anxious,interrupted sleep,tremor Objective: 07/24/17 10:41 Vital Signs Temperature 100.4 F H 07/24/17 10:12 Pulse Rate 85 07/24/17 10:12 Respiratory Rate 18 07/24/17 10:12 Blood Pressure 150/93 07/24/17 10:12 O2 Sat by Pulse Oximetry (%) ekg nsr no chest pain,no sob,no dizziness 07/24/17 10:41 Laboratory Last Values WBC 7.2 K/mm3 (4.0-10.0) 07/24/17 05:30 RBC 3.19 M/mm3 (4.00-5.60) L D 07/24/17 05:30 Hgb 11.1 GM/dL (11.7-16.9) L D 07/24/17 05:30 Hct 32.6 % (35.4-49) L D 07/24/17 05:30 MCV 102.2 fl (80-96) H 07/24/17 05:30 MCH 34.9 pg (25.7-33.7) H 07/24/17 05:30 MCHC 34.1 g/dl (32.0-35.9) 07/24/17 05:30 RDW 13.1 % (11.9-15.9) 07/24/17 05:30 Plt Count 196 K/MM3 (134-434) D 07/24/17 05:30 MPV 8.1 fl (7.5-11.1) D 07/24/17 05:30 Sodium 142 mmol/L (136-145) 07/24/17 05:30 Potassium 3.7 mmol/L (3.5-5.1) 07/24/17 05:30 Chloride 111 mmol/L (98-107) H 07/24/17 05:30 Carbon Dioxide 21 mmol/L (21-32) D 07/24/17 05:30 Anion Gap 10 (8-16) 07/24/17 05:30 BUN 8 mg/dL (7-18) 07/24/17 05:30 Creatinine 0.7 mg/dL (0.7-1.3) D 07/24/17 05:30 Creat Clearance w eGFR > 60 (>60) 07/24/17 05:30 Random Glucose 127 mg/dL (74-106) H D 07/24/17 05:30 Calcium 8.1 mg/dL (8.5-10.1) L 07/24/17 05:30 Total Bilirubin 0.7 mg/dL (0.2-1.0) D 07/24/17 05:30 AST 69 U/L (15-37) H D 07/24/17 05:30 ALT 48 U/L (12-78) 07/24/17 05:30 Alkaline Phosphatase 124 U/L (45-117) H D 07/24/17 05:30 Total Protein 7.5 g/dl (6.4-8.2) 07/24/17 05:30 Albumin 3.1 g/dl (3.4-5.0) L D 07/24/17 05:30 Urine Color Ltyellow 07/23/17 22:00 Urine Appearance Clear 07/23/17 22:00 Urine pH 5.0 (5.0-8.0) D 07/23/17 22:00 Ur Specific [place] 1.009 (1.001-1.035) 07/23/17 22:00 Urine Protein Negative (NEGATIVE) 07/23/17 22:00 Urine Glucose (UA) Negative (NEGATIVE) 07/23/17 22:00 Urine Ketones Negative (NEGATIVE) 07/23/17 22:00 Urine Blood Negative (NEGATIVE) 07/23/17 22:00 Urine Nitrite Negative (NEGATIVE) 07/23/17 22:00 Urine Bilirubin Negative (NEGATIVE) 07/23/17 22:00 Urine Urobilinogen Negative mg/dL (0.2-1.0) 07/23/17 22:00 Assessment: 07/24/17 10:42 withdrawal symptom Plan: continue detox
[2017-07-24] MEDS: PRENATAL VITAMINS W/ FOLIC ACID TABLET (FP) PO SCH (10:49)
[2017-07-24] MEDS: METOPROLOL SUCCINATE 50 MG TAB.SR.24H (FP) PO SCH (10:49)
[2017-07-24] MEDS: HYDROCORTISONE 2.5% TOPICAL CREAM 30 GM TUBE TP SCH ×2 (10:50→10:52)
[2017-07-24 11:16] LABS: URINE LEUK ESTERASE Negative (NEGATIVE)
[2017-07-24] MEDS: BENZOCAINE 28 GM HEMORRHOIDAL OINTMENT PR PRN (17:59)
[2017-07-24] MEDS: THIAMINE HCL 100 MG TABLET (FP) PO SCH (22:51)
[2017-07-25] MEDS: chlordiazePOXIDE HCL 25 MG CAPSULE PO SCH ×2 (05:37→10:49)
[2017-07-25] MEDS: PRENATAL VITAMINS W/ FOLIC ACID TABLET (FP) PO SCH (10:49)
[2017-07-25] MEDS: METOPROLOL SUCCINATE 50 MG TAB.SR.24H (FP) PO SCH (10:49)
[2017-07-25] MEDS: HYDROCORTISONE 2.5% TOPICAL CREAM 30 GM TUBE TP SCH (10:49)
--- NOTE | 2017-07-25 12:22 | PN ---
S CIWA - CIWA Score Nausea/Vomitin-No Nausea/No Vomiting Muscle Tremors: 4-Moderate,w/Arms Extend Anxiety: 3 Agitation: 3 Paroxysmal Sweats: 3 Orientation: 0-Oriented Tacttile Disturbances: 0-None Auditory Disturbances: 0-None Visual Disturbances: 0-None Headache: 0-None Present CIWA-Ar Total Score: 13 S Progress Note (SOAP) Subjective: feeling good little sweats anxiety Objective: 07/25/17 12:21 Vital Signs Temperature 97.7 F 07/25/17 09:50 Pulse Rate 90 07/25/17 09:50 Respiratory Rate 18 07/25/17 09:50 Blood Pressure 135/85 07/25/17 09:50 O2 Sat by Pulse Oximetry (%) Laboratory Tests 07/23/17 07/24/17 07/24/17 22:00 05:30 05:30 WBC 7.2 RBC 3.19 L D Hgb 11.1 L D Hct 32.6 L D MCV 102.2 H MCH 34.9 H MCHC 34.1 RDW 13.1 Plt Count 196 D MPV 8.1 D Sodium 142 Potassium 3.7 Chloride 111 H Carbon Dioxide 21 D Anion Gap 10 BUN 8 Creatinine 0.7 D Creat Clearance w eGFR > 60 Random Glucose 127 H D Calcium 8.1 L Total Bilirubin 0.7 D AST 69 H D ALT 48 Alkaline Phosphatase 124 H D Total Protein 7.5 Albumin 3.1 L D Urine Color Ltyellow Urine Appearance Clear Urine pH 5.0 D Ur Specific [place] 1.009 Urine Protein Negative Urine Glucose (UA) Negative Urine Ketones Negative Urine Blood Negative Urine Nitrite Negative Urine Bilirubin Negative Urine Urobilinogen Negative Ur Leukocyte Esterase Negative RPR Titer 07/24/17 05:30 WBC RBC Hgb Hct MCV MCH MCHC RDW Plt Count MPV Sodium Potassium Chloride Carbon Dioxide Anion Gap BUN Creatinine Creat Clearance w eGFR Random Glucose Calcium Total Bilirubin AST ALT Alkaline Phosphatase Total Protein Albumin Urine Color Urine Appearance Urine pH Ur Specific [place] Urine Protein Urine Glucose (UA) Urine Ketones Urine Blood Urine Nitrite Urine Bilirubin Urine Urobilinogen Ur Leukocyte Esterase RPR Titer Nonreactive aaox3 ambulating no acute distress Assessment: 07/25/17 12:21 withdrawal sx Plan: continue detox increase fluids
[2017-07-25] MEDS: chlordiazePOXIDE 5 MG CAPSULE PO SCH ×2 (17:10→22:32)
[2017-07-25] MEDS: THIAMINE HCL 100 MG TABLET (FP) PO SCH (22:32)
[2017-07-26] MEDS: chlordiazePOXIDE 5 MG CAPSULE PO SCH ×2 (05:50→10:08)
[2017-07-26] MEDS: BENZOCAINE 28 GM HEMORRHOIDAL OINTMENT PR PRN ×2 (10:07→10:30)
[2017-07-26] MEDS: METOPROLOL SUCCINATE 50 MG TAB.SR.24H (FP) PO SCH (10:08)
[2017-07-26] MEDS: PRENATAL VITAMINS W/ FOLIC ACID TABLET (FP) PO SCH (10:08)
[2017-07-26] MEDS: HYDROCORTISONE 2.5% TOPICAL CREAM 30 GM TUBE TP SCH (10:30)
--- NOTE | 2017-07-26 10:34 | PN ---
BHS Progress Note (SOAP) Subjective: alert,irritable,anxious,interrupted sleep, Objective: 07/26/17 10:33 Vital Signs Temperature 97.9 F 07/26/17 06:16 Pulse Rate 79 07/26/17 06:16 Respiratory Rate 18 07/26/17 06:16 Blood Pressure 134/86 07/26/17 06:16 O2 Sat by Pulse Oximetry (%) Laboratory Last Values WBC 7.2 K/mm3 (4.0-10.0) 07/24/17 05:30 RBC 3.19 M/mm3 (4.00-5.60) L D 07/24/17 05:30 Hgb 11.1 GM/dL (11.7-16.9) L D 07/24/17 05:30 Hct 32.6 % (35.4-49) L D 07/24/17 05:30 MCV 102.2 fl (80-96) H 07/24/17 05:30 MCH 34.9 pg (25.7-33.7) H 07/24/17 05:30 MCHC 34.1 g/dl (32.0-35.9) 07/24/17 05:30 RDW 13.1 % (11.9-15.9) 07/24/17 05:30 Plt Count 196 K/MM3 (134-434) D 07/24/17 05:30 MPV 8.1 fl (7.5-11.1) D 07/24/17 05:30 Sodium 142 mmol/L (136-145) 07/24/17 05:30 Potassium 3.7 mmol/L (3.5-5.1) 07/24/17 05:30 Chloride 111 mmol/L (98-107) H 07/24/17 05:30 Carbon Dioxide 21 mmol/L (21-32) D 07/24/17 05:30 Anion Gap 10 (8-16) 07/24/17 05:30 BUN 8 mg/dL (7-18) 07/24/17 05:30 Creatinine 0.7 mg/dL (0.7-1.3) D 07/24/17 05:30 Creat Clearance w eGFR > 60 (>60) 07/24/17 05:30 Random Glucose 127 mg/dL (74-106) H D 07/24/17 05:30 Calcium 8.1 mg/dL (8.5-10.1) L 07/24/17 05:30 Total Bilirubin 0.7 mg/dL (0.2-1.0) D 07/24/17 05:30 AST 69 U/L (15-37) H D 07/24/17 05:30 ALT 48 U/L (12-78) 07/24/17 05:30 Alkaline Phosphatase 124 U/L (45-117) H D 07/24/17 05:30 Total Protein 7.5 g/dl (6.4-8.2) 07/24/17 05:30 Albumin 3.1 g/dl (3.4-5.0) L D 07/24/17 05:30 Urine Color Ltyellow 07/23/17 22:00 Urine Appearance Clear 07/23/17 22:00 Urine pH 5.0 (5.0-8.0) D 07/23/17 22:00 Ur Specific [place] 1.009 (1.001-1.035) 07/23/17 22:00 Urine Protein Negative (NEGATIVE) 07/23/17 22:00 Urine Glucose (UA) Negative (NEGATIVE) 07/23/17 22:00 Urine Ketones Negative (NEGATIVE) 07/23/17 22:00 Urine Blood Negative (NEGATIVE) 07/23/17 22:00 Urine Nitrite Negative (NEGATIVE) 07/23/17 22:00 Urine Bilirubin Negative (NEGATIVE) 07/23/17 22:00 Urine Urobilinogen Negative mg/dL (0.2-1.0) 07/23/17 22:00 Ur Leukocyte Esterase Negative (NEGATIVE) 07/23/17 22:00 RPR Titer Nonreactive (NONREACTIVE) 07/24/17 05:30 Assessment: 07/26/17 10:33 withdrawal symptom Plan: continue detox,discharge in am
[2017-07-26] MEDS: chlordiazePOXIDE HCL 10 MG CAPSULE PO SCH ×2 (17:14→22:20)
[2017-07-26] MEDS: THIAMINE HCL 100 MG TABLET (FP) PO SCH (22:20)
[2017-07-27] MEDS: chlordiazePOXIDE HCL 10 MG CAPSULE PO SCH (05:55)
[2017-07-27 06:09] VITALS: BP 117/82; PULSE 83; TEMP 98.1
--- NOTE | 2017-07-27 08:43 | DS ---
[facility] Detox Discharge Summary Admission Date: 07/23/17 Discharge Date: 07/27/17 - History Present History: Alcohol Dependence, Cannabis Dependence Additional Comments: follow up with after care program as arrangement Pertinent Past History: hypertension gerd depression hemorrhoid - Physical Exam Results Vital Signs: Vital Signs Temperature 98.1 F 07/27/17 06:09 Pulse Rate 83 07/27/17 06:09 Respiratory Rate 18 07/27/17 06:09 Blood Pressure 117/82 07/27/17 06:09 O2 Sat by Pulse Oximetry (%) Pertinent Admission Physical Exam Findings: withdrawal symptom - Treatment Hospital Course: Detox Protocol Followed, Detoxed Safely, Responded well, Discharged Condition Good, Rehab Referral Accepted Patient has Accepted a Rehab Referral to: [facility] - Medication Discharge Medications: Ambulatory Orders Metoprolol Succinate [Toprol Xl -] 50 mg PO DAILY 07/09/17 - Diagnosis (1) Alcohol dependence with intoxication Status: Acute Qualifiers: Complication of substance-induced condition: uncomplicated Qualified Code(s ): F10.220 - Alcohol dependence with intoxication, uncomplicated (2) Alcohol dependence with uncomplicated withdrawal Status: Acute (3) Hypertension Status: Chronic Qualifiers: Hypertension type: essential hypertension Qualified Code(s): I10 - Essential (primary) hypertension (4) Depression (emotion) Status: Suspected Qualifiers: Depression Type: unspecified Qualified Code(s): F32.9 - Major depressive disorder, single episode, unspecified (5) GERD (gastroesophageal reflux disease) Status: Chronic Qualifiers: Esophagitis presence: without esophagitis Qualified Code(s): K21.9 - Gastro -esophageal reflux disease without esophagitis (6) Hemorrhoid Status: Acute - AMA Did Patient Leave Against Medical Advice: No
== END 2017-07-27 07:42 | disposition home or self-care (01) | DRG 897 ==
LOC: YASAS 12:02 → Y6N 16:30
PROVIDERS: ADMIT Internal Medicine; ATTEND Internal Medicine
PROC: HZ2ZZZZ Detoxification Services for Substance Abuse Treatment (ICD-10-PCS; principal; 2017-07-23)
DX: F10.230 Alcohol dependence with withdrawal, uncomplicated (principal); F32.9 Major depressive disorder, single episode, unspecified; G47.00 Insomnia, unspecified; I10 Essential (primary) hypertension; K21.9 Gastro-esophageal reflux disease without esophagitis; E87.6 Hypokalemia; K64.9 Unspecified hemorrhoids
CPT/HCPCS: 36415; 80053; 81003; 85027; 86593; 93005; 93010